=== PATIENT | female | born 1990 | race African-American/Black ===

== ENCOUNTER 2016-05-30 10:20 | Inpatient (IN) | payer MEDICAID ==
[2016-05-30 11:02] LABS: APPEARANCE,URINE CLOUDY; BILIRUBIN,URINE NEGATIVE (NEGATIVE); GLUCOSE, URINE NEGATIVE (NEGATIVE); KETONES,URINE TRACE mg/dL (NEGATIVE); LEUKOCYTE ESTERASE,URINE LARGE (NEGATIVE); NITRITE,URINE NEGATIVE (NEGATIVE); PROTEIN,URINE NEGATIVE (NEGATIVE); URINE SPECIFIC GRAVITY 1.012; UROBILINOGEN,URINE NEGATIVE mg/dL (<2.0)
[2016-05-30 11:22] LABS: URINE BARBITURATES SCREEN NEGATIVE; URINE METHADONE SCREEN NEGATIVE; URINE OPIATES LOW NEGATIVE; URINE PHENCYCLIDINE SCREEN NEGATIVE
--- NOTE | 2016-05-30 12:01 | L&D Flow Sheet ---
LD Flowsheet Datetime Report Generated by CPN: 05/30/2016 12:00 Datetime: 05/30/2016 11:57 Patient Care Patient Position/Activity: Left Lateral; Low Fowlers (Priyanka Marlatt, RN) Datetime: 05/30/2016 11:56 Vaginal Exam Dilatation (cm): 6.0 (Priyanka Roblero, RN) Effacement (%): 90 (Priyanka Roblero, RN) Station: 0 (Priyanka Roblero, RN) Exam by: Dede Roblero RN (Priyanka Roblero, RN) Cervix, Position: Midposition (Priyanka Roblero, RN) Datetime: 05/30/2016 11:43 NBP Sys/Emma/Mean (mmHg): 126 (QS system process) : 58 (QS system process) : 83 (QS system process) Pulse: 67 (QS system process) Communication LaborFlag: Antepartum (QS system process) Datetime: 05/30/2016 11:12 NBP Sys/Emma/Mean (mmHg): 125 (QS system process) : 75 (QS system process) : 91 (QS system process) Pulse: 74 (QS system process) Communication LaborFlag: Antepartum (QS system process) Datetime: 05/30/2016 11:00 Uterine Activity Monitor Mode: External; Palpation (Priyanka Marlatt, RN) Frequency (min): 2-3.5 (Priyanka Marlatt, RN) Quality: Mild/Moderate (Priyanka Marlatt, RN) Duration (sec): 50-90 (Priyanka Marlatt, RN) Resting Tone (Palpate): Relaxed (Priyanka Marlatt, RN) Assessment A Monitor Mode: External US (Priyanka Marlatt, RN) FHR Baseline Rate : 145 (Priyanka Marlatt, RN) Variability: Moderate 6-25 bpm (Priyanka Marlatt, RN) Decelerations: None (Priyanka Marlatt, RN) Datetime: 05/30/2016 10:57 I/O Interventions: Popsicle (Priyanka Marlatt, RN) Datetime: 05/30/2016 10:56 Temperature (F): 98.3 (Priyanka Marlatt, RN) Temperature (C): 36.8 (QS system process) Communication LaborFlag: Antepartum (QS system process) Datetime: 05/30/2016 10:55 Monitor Interventions for UA: [place] Adjusted (Priyanka Marlatt, RN) Datetime: 05/30/2016 10:42 NBP Sys/Emma/Mean (mmHg): 135 (QS system process) : 63 (QS system process) : 89 (QS system process) Pulse: 67 (QS system process) Communication LaborFlag: Antepartum (QS system process) Datetime: 05/30/2016 10:35 Frequency (min): every 5 minutes (Priyanka Jacindasarahmanuelito, ) Pain Pain Scale: 3 (Priyanka Roblero RN) Pain Presence: Intermittent (Priyanka Roblero RN) Pain Type: Cramping; Contraction (Priyanka Roblero RN) Pain Location: Abdomen (Priyanka Roblero RN) Pain Goal: 1 (Priyanka Roblero RN) Pain Relief Measures: Comfort Measures (Priyanka Roblero RN) Pain Coping: Talking Through Contractions; Breathing Through Contractions (Priyanka Roblero RN) Membrane Status: Intact (Priyanka Roblero RN) Vaginal Bleeding: None (Priyanka Roblero RN) Maternal Assessment Level of Consciousness: Fully Conscious (Priyanka Roblero, RN) DTR's/Clonus: DTRs 2+; No Clonus (Priyanka Roblero, RN) Headache: Denies (Priyanka Mayatt, RN) Breath Sounds, Left: Clear and Equal (Priyanka Roblero, RN) Breath Sounds, Right: Clear and Equal (Priyanka Roblero, RN) Nausea/Vomiting: Denies (Priyanka Roblero, RN) RUQ Epigastric Pain: Denies (Priyanka Monacolatt, RN) Teaching Instructional Method: Demo; Verbal; Patient Instructed; Family/Support Person Instructed; Verbalized Understanding (Priyanka Roblero RN) Plan of Care: Plan of Care Discussed; Labor (Priyanka Roblero RN) Unit Routine: [place] to Room; [place]; Bed; Monitoring (Priyanka Roblero RN) Labor/Induction: Labor Stages (Priyanka Roblero, LIBBY) Communication LaborFlag: Antepartum (QS system process) Datetime: 05/30/2016 10:34 Vaginal Exam Dilatation (cm): 4.0 (Priyanka Roblero RN) Effacement (%): 90 (Priyanka Roblero RN) Station: 0 (Priyanka Roblero RN) Exam by: Dede Roblero RN (Priyanka Roblero RN) Vaginal Bleeding: None (Priyanka Roblero RN) Cervix, Consistency: Soft (Priyanka Roblero RN) Cervix, Position: Midposition (Priyanka Roblero RN) Datetime: 05/30/2016 10:33 Vital Signs Stage of : Antepartum (Priyanka Roblero RN)
[2016-05-30] MEDS ORDERED: PENICILLIN G-K 5 MILLION UNIT VIAL ONE ×2 (12:04→15:46)
[2016-05-30] MEDS ORDERED: RINGERS SOLUTION,LACTATED 1,000 ML IV ONE (12:10)
[2016-05-30] MEDS ORDERED: PENICILLIN G POTASSIUM 5,000,000 UNIT in DEXTROSE 5%-WATER 100 ML IV ONE (12:10)
[2016-05-30] MEDS ORDERED: RINGERS SOLUTION,LACTATED 1,000 ML IV PRN (12:10)
[2016-05-30 12:52] LABS: ABSOLUTE EOSINOPHILS # (AUTO) 0.1 10^3/uL (0.0-0.6); ABSOLUTE LYMPHOCYTES (AUTO) 1.4 10^3/uL (0.5-4.7); ABSOLUTE MONOCYTES (AUTO) 0.4 10^3/uL (0.1-1.4); ABSOLUTE NEUT (AUTO) 9.9 10^3/uL (1.7-8.2); BASOPHILS % (AUTO) 0.4 % (0-2); EOSINOPHILS % (AUTO) 0.6 % (0-6); HEMATOCRIT 35.8 % (36.0-47.0); HEMOGLOBIN 11.7 g/dL (12.0-15.5); HGB HCT DIFFERENCE -0.7; LYMPHOCYTES % (AUTO) 11.9 % (13-45); MEAN CORPUSCULAR HEMOGLOBIN 28.3 pg (27.0-33.4); MEAN CORPUSCULAR HGB CONC 32.6 g/dL (32.0-36.0); MEAN CORPUSCULAR VOLUME 87 fl (80-97); MONOCYTES % (AUTO) 3.7 % (3-13); RED BLOOD COUNT 4.12 10^6/uL (3.72-5.28); RED CELL DISTRIBUTION WIDTH 13.5 % (11.5-14.0); SEGMENTED NEUTROPHILS % (AUTO) 83.4 % (42-78); WHITE BLOOD COUNT 11.8 10^3/uL (4.0-10.5)
[2016-05-30] MEDS ORDERED: EPHEDRINE SULFATE INJ 50 MG/1 ML AMPULE ONE (13:17)
[2016-05-30] MEDS ORDERED: FENTANYL/BUPIVACAINE/NS/PF 200 MCG/100 ML RTUINJ EPI ONE (13:18)
[2016-05-30] MEDS ORDERED: BUPIVACAINE HCL 0.25 % INJ/PF (2.5 MG/1 ML) 30 ML VIAL ONE (13:18)
--- NOTE | 2016-05-30 14:01 | L&D Flow Sheet ---
LD Flowsheet Datetime Report Generated by CPN: 05/30/2016 14:00 Datetime: 05/30/2016 13:58 Pulse: 74 (QS system process) SpO2 (%): 99 (QS system process) LaborFlag: Antepartum (QS system process) Datetime: 05/30/2016 13:53 Pulse: 72 (QS system process) SpO2 (%): 99 (QS system process) Procedure Verify: Correct Patient Identity; Accurate Procedure Consent Form; Agreement on Procedure to be Done; Correct Patient Position (Priyanka Roblero RN) Anesthesia Plans: Epidural (Priyanka Roblero RN) Epidural Positioning: Sitting (Priyanka Roblero RN) Anesthesia Comments: Dr. Greene at bedside (Priyanka Roblero RN) LaborFlag: Antepartum (QS system process) Datetime: 05/30/2016 13:50 Epidural Positioning: Sitting (Priyanka Roblero RN) Datetime: 05/30/2016 13:44 NBP Sys/Emma/Mean (mmHg): 123 (QS system process) : 68 (QS system process) : 88 (QS system process) Pulse: 78 (QS system process) LaborFlag: Antepartum (QS system process) Datetime: 05/30/2016 13:35 Monitor Interventions for UA: [place] Adjusted (Priyanka Marlatt, RN) Datetime: 05/30/2016 13:34 Monitor Interventions for FHR: Ultrasound Adjusted (Priyanka Marlatt, RN) Datetime: 05/30/2016 13:33 Patient Position/Activity: Right Lateral; Semi-Fowlers (Priyanka Marlatt, RN) Datetime: 05/30/2016 13:31 Pain Coping: Requesting Pain Medication or Epidural (Priyanka Roblero RN) Pain Assessment Comments: Dr. Greene notified of patient requesting epidural. States he will be here in 10-15 minutes (Priyanka Roblero RN) Comfort Measures: Anesthesia Notified (Priyanka Roblero RN) LaborFlag: Antepartum (QS system process) Datetime: 05/30/2016 13:30 Monitor Mode: External; Palpation (Priyanka Roblero RN) Frequency (min): 1.5-4.5 (Priyanka Roblero RN) Quality: Moderate (Priyanka Roblero RN) Duration (sec): 80-120 (Priyanka Roblero RN) Resting Tone (Palpate): Relaxed (Priyanka Roblero RN) Monitor Mode: External US (Priyanka Roblero RN) FHR Baseline Rate : 140 (Priyanka Roblero RN) Variability: Moderate 6-25 bpm (Priyanka Roblero RN) Accelerations: 10X10 (Priyanka Roblero RN) Decelerations: None (Priyanka Roblero RN) Datetime: 05/30/2016 13:28 I/O Interventions: Up to BR (Priyanka Marlatt, RN) Datetime: 05/30/2016 13:13 NBP Sys/Emma/Mean (mmHg): 123 (QS system process) : 54 (QS system process) : 78 (QS system process) Pulse: 74 (QS system process) LaborFlag: Antepartum (QS system process) Datetime: 05/30/2016 13:01 IV/Blood Work: New IV Bag Hung (Priyanka Marlatt, RN) Datetime: 05/30/2016 13:00 Monitor Mode: External; Palpation (Priyanka Roblero, RN) Monitor Interventions for UA: [place] Adjusted (Priyanka Roblero, RN) Frequency (min): 1.5-6 (Priyanka Roblero, RN) Quality: Moderate (Priyanka Roblero, RN) Duration (sec): 50-60 (Priyanka Roblero, RN) Resting Tone (Palpate): Relaxed (Priyanka Roblero, RN) Monitor Mode: External US (Priyanka Roblero, RN) Monitor Interventions for FHR: Ultrasound Adjusted (Priyanka Roblero, RN) FHR Baseline Rate : 140 (Priyanka Roblero, RN) Variability: Moderate 6-25 bpm (Priyanka Monacolatt, RN) Accelerations: 10X10 (Priyanka Roblero, RN) Decelerations: None (Priyanka Monacolatt, RN) Datetime: 05/30/2016 12:59 Patient Position/Activity: Right Lateral; Semi-Fowlers (Priyanka Marlatt, RN) Datetime: 05/30/2016 12:52 I/O Interventions: Up to BR (Priyanka Roblero RN) Datetime: 05/30/2016 12:43 NBP Sys/Emma/Mean (mmHg): 121 (QS system process) : 76 (QS system process) : 92 (QS system process) Pulse: 75 (QS system process) LaborFlag: Antepartum (QS system process) Datetime: 05/30/2016 12:30 Monitor Mode: External; Palpation (Priyanka Roblero RN) Frequency (min): 2-5 (Priyanka Roblero RN) Quality: Moderate (Priyanka Roblero RN) Duration (sec): 60-100 (Priyanka Roblero RN) Resting Tone (Palpate): Relaxed (Priyanka Roblero RN) Monitor Mode: External US (Priyanka Roblero RN) FHR Baseline Rate : 140 (Priyanka Roblero RN) Variability: Moderate 6-25 bpm (Priyanka Roblero RN) Decelerations: Late (Priyanka Roblero RN) Actions for Decelerations: IV Bolus (Priyanka Roblero RN) Patient Position/Activity: Right Lateral; Low Fowlers (Priyanka Roblero RN) Datetime: 05/30/2016 12:28 Communication: RN at Bedside; Provider at Bedside (Priyanka Roblero RN) Communication Comments: Dede Daniel CNM at bedside assessing patient and discussing plan of care (Priyanka Roblero RN) Datetime: 05/30/2016 12:26 IV/Blood Work: Labs Drawn (Priyanka Roblero RN) Datetime: 05/30/2016 12:05 Antibiotics: Penicillin IV (Units) @ [id number] (Priyanka Roblero RN) IV/Blood Work: IV Started; IV Bolus Started (Priyanka Roblero RN) Patient Care Comments: 18G lower Left forearm (Priyanka Roblero RN) Datetime: 05/30/2016 12:00 Monitor Mode: External (Priyanka Roblero RN) Frequency (min): 1.5-2.5 (Priyanka Roblero RN) Quality: Moderate (Priyanka Roblero RN) Duration (sec): 60-80 (Priyanka Roblero RN) Resting Tone (Palpate): Relaxed (Priyanka Roblero RN) Monitor Mode: External US (Priyanka Roblero RN) FHR Baseline Rate : 140 (Priyanka Roblero RN) Variability: Moderate 6-25 bpm (Priyanka Roblero RN) Accelerations: 10X10 (Priyanka Roblero RN) Decelerations: None (Priyanka Roblero RN)
[2016-05-30] MEDS ORDERED: LIDOCAINE 1% INJ-PF (10 MG/ML) 30 ML SDV ONE (15:13)
[2016-05-30] MEDS ORDERED: OXYTOCIN/NORMAL SALINE 20 UNIT/1,000 ML RTUINJ ONE (15:13)
[2016-05-30] MEDS ORDERED: MISOPROSTOL 0.2 MG TABLET ONE (15:13)
[2016-05-30] MEDS ORDERED: PENICILLIN G-K 5 MILLION UNIT VIAL IV SCH (16:00)
--- NOTE | 2016-05-30 16:01 | L&D Flow Sheet ---
LD Flowsheet Datetime Report Generated by CPN: 05/30/2016 16:00 Datetime: 05/30/2016 15:56 Preparation for Delivery: Setup for Delivery (Lorin Camp, RNC) Datetime: 05/30/2016 15:54 Antibiotics: Penicillin IV (Units) @ 2.5 million units ivpb (Lorin Camp, RNC) Datetime: 05/30/2016 15:52 Comments: rn at bedside adjusting monitors (Lorin Camp, RNC) Datetime: 05/30/2016 15:42 NBP Sys/Emma/Mean (mmHg): 115 (QS system process) : 60 (QS system process) : 80 (QS system process) Pulse: 82 (QS system process) LaborFlag: Antepartum (QS system process) Datetime: 05/30/2016 15:27 NBP Sys/Emma/Mean (mmHg): 131 (QS system process) : 58 (QS system process) : 84 (QS system process) Pulse: 74 (QS system process) LaborFlag: Antepartum (QS system process) Datetime: 05/30/2016 15:12 NBP Sys/Emma/Mean (mmHg): 115 (QS system process) : 61 (QS system process) : 75 (QS system process) Pulse: 90 (QS system process) LaborFlag: Antepartum (QS system process) Datetime: 05/30/2016 15:09 Pain Assessment Comments: patient feeling intermittent pressure (Priyanka Marlatt, RN) LaborFlag: Antepartum (QS system process) Datetime: 05/30/2016 15:04 Dilatation (cm): 8.0 (Priyanka Roblero RN) Effacement (%): 90 (Priyanka Roblero RN) Station: 1 (Priyanka Roblero RN) Exam by: Dede Roblero RN (Priyanka Roblero RN) Datetime: 05/30/2016 15:01 Patient Position/Activity: Hands-Knees (Priyanka Roblero RN) Datetime: 05/30/2016 14:58 NBP Sys/Emma/Mean (mmHg): 120 (QS system process) : 53 (QS system process) : 76 (QS system process) Pulse: 58 (QS system process) Patient Position/Activity: Right Lateral (Priyanka Roblero RN) LaborFlag: Antepartum (QS system process) Datetime: 05/30/2016 14:50 Patient Position/Activity: Left Lateral; [place] (Priyanka Marlatt, RN) Datetime: 05/30/2016 14:48 Monitor Interventions for UA: [place] Adjusted (Priyanka Marlatt, RN) Datetime: 05/30/2016 14:47 Actions for Decelerations: Side to Side (Priyanka Jacindalatt, RN) Patient Position/Activity: Left Lateral (Priyanka Marlatt, RN) Datetime: 05/30/2016 14:43 NBP Sys/Emma/Mean (mmHg): 122 (QS system process) : 58 (QS system process) : 83 (QS system process) Pulse: 62 (QS system process) LaborFlag: Antepartum (QS system process) Datetime: 05/30/2016 14:27 NBP Sys/Emma/Mean (mmHg): 122 (QS system process) : 79 (QS system process) : 94 (QS system process) Pulse: 85 (QS system process) LaborFlag: Antepartum (QS system process) Datetime: 05/30/2016 14:19 Patient Position/Activity: Right Lateral; [place] (Priyanka Marlatt, RN) Datetime: 05/30/2016 14:16 Dilatation (cm): 6.0 (Priyanka Roblero RN) Exam by: Dede Daniel (Priyanka Roblero RN) Membrane Status: Ruptured (Priyanka Roblero RN) Membranes Rupture Method: Artificial (Priyanka Roblero RN) Amniotic Fluid Color: Clear (Priyanka Roblero RN) Amniotic Fluid Amount: Small (Priyanka Roblero RN) Datetime: 05/30/2016 14:12 NBP Sys/Emma/Mean (mmHg): 134 (QS system process) : 62 (QS system process) : 88 (QS system process) Pulse: 71 (QS system process) LaborFlag: Antepartum (QS system process) Datetime: 05/30/2016 14:10 NBP Sys/Emma/Mean (mmHg): 130 (QS system process) : 60 (QS system process) : 86 (QS system process) Pulse: 72 (QS system process) I/O Interventions: Bond Cath Inserted (Priyanka Roblero RN) LaborFlag: Antepartum (QS system process) Datetime: 05/30/2016 14:08 NBP Sys/Emma/Mean (mmHg): 128 (QS system process) : 63 (QS system process) : 89 (QS system process) Pulse: 33 (QS system process) LaborFlag: Antepartum (QS system process) Datetime: 05/30/2016 14:06 NBP Sys/Emma/Mean (mmHg): 131 (QS system process) : 67 (QS system process) : 92 (QS system process) Pulse: 66 (QS system process) Epidural Procedure Other: Pump Started (Priyanka Marlatt, RN) LaborFlag: Antepartum (QS system process) Datetime: 05/30/2016 14:05 Anesthesia Level Check: T10- Umbilicus (Priyanka Jacindalatt, RN) Datetime: 05/30/2016 14:04 NBP Sys/Emma/Mean (mmHg): 131 (QS system process) : 64 (QS system process) : 91 (QS system process) Pulse: 81 (QS system process) LaborFlag: Antepartum (QS system process) Datetime: 05/30/2016 14:03 Pulse: 78 (QS system process) SpO2 (%): 99 (QS system process) LaborFlag: Antepartum (QS system process) Datetime: 05/30/2016 14:02 NBP Sys/Emma/Mean (mmHg): 132 (QS system process) : 78 (QS system process) : 96 (QS system process) Pulse: 81 (QS system process) LaborFlag: Antepartum (QS system process) Datetime: 05/30/2016 14:01 Epidural Procedure: Cath Placed (Priyanka Roblero RN) Epidural Procedure: Test Dose (Priyanka Roblero RN)
[2016-05-30] MEDS ORDERED: PENICILLIN G POTASSIUM 2,500,000 UNIT in DEXTROSE 5%-WATER 50 ML IV SCH (16:11)
[2016-05-30] MEDS ORDERED: DIPH/PERTUSS(ACELL)/TETANUS VAC/PF 0.5 ML SYR (>=10YO) IM PRN (17:01)
[2016-05-30] MEDS ORDERED: BENZOCAINE/MENTHOL AEROSOL SPRAY 56 ML TOP PRN (17:01)
[2016-05-30] MEDS ORDERED: ACETAMINOPHEN WITH CODEINE #3 TABLET PO PRN ×2 (17:01)
[2016-05-30] MEDS ORDERED: OXYTOCIN/NORMAL SALINE 1,000 ML IV PRN (17:01)
[2016-05-30] MEDS ORDERED: DIBUCAINE 1% OINTMENT 28 GM TP PRN (17:01)
[2016-05-30] MEDS ORDERED: MEASLES,MUMPS&RUBELLA VACC/PF 0.5 ML VIAL SUBCUT PRN (17:01)
[2016-05-30] MEDS ORDERED: ZOLPIDEM TARTRATE 5 MG TABLET PO PRN (17:01)
--- NOTE | 2016-05-30 18:01 | L&D Flow Sheet ---
LD Flowsheet Datetime Report Generated by CPN: 05/30/2016 18:00 Datetime: 05/30/2016 17:49 NBP Sys/Emma/Mean (mmHg): 129 (QS system process) : 60 (QS system process) : 84 (QS system process) Pulse: 66 (QS system process) LaborFlag: Antepartum (QS system process) Datetime: 05/30/2016 17:35 Pain Scale: 1 (Priyanka Roblero, RN) Pain Presence: Intermittent (GODWIN [place] Pain Type: Cramping (Priyanka Roblero RN) Pain Location: Abdomen (Priyanka Roblero RN) Pain Goal: 1 (Priyanka Roblero RN) Pain Relief Measures: Comfort Measures (Priyanka Roblero RN) LaborFlag: Antepartum (QS system process) Datetime: 05/30/2016 17:15 Pain Scale: 1 (Priyanka Roblero RN) Pain Presence: Intermittent (Priyanka Roblero RN) Pain Type: Cramping (Priyanka Roblero RN) Pain Location: Abdomen (Priyanka Roblero RN) Pain Goal: 1 (Priyanka Roblero RN) Pain Relief Measures: Comfort Measures (Priyanka Roblero RN) LaborFlag: Antepartum (QS system process) Datetime: 05/30/2016 17:12 NBP Sys/Emma/Mean (mmHg): 148 (QS system process) : 77 (QS system process) : 97 (QS system process) Pulse: 90 (QS system process) LaborFlag: Antepartum (QS system process) Datetime: 05/30/2016 17:00 Pain Scale: 1 (Priyanka Roblero RN) Pain Presence: Intermittent (Priyanka Roblero RN) Pain Type: Cramping (Priyanka Roblero RN) Pain Location: Abdomen (Priyanka Roblero RN) Pain Goal: 1 (Priyanka Roblero RN) Pain Relief Measures: Comfort Measures (Priyanka Roblero RN) LaborFlag: Antepartum (QS system process) Datetime: 05/30/2016 16:57 NBP Sys/Emma/Mean (mmHg): 141 (QS system process) : 61 (QS system process) : 88 (QS system process) Pulse: 77 (QS system process) LaborFlag: Antepartum (QS system process) Datetime: 05/30/2016 16:45 Pain Scale: 1 (Priyanka Roblero RN) Pain Presence: Intermittent (Pryianka Roblero RN) Pain Type: Cramping (Priyanka Roblero RN) Pain Location: Abdomen (Priyanka Roblero RN) Pain Goal: 1 (Priyanka Roblero RN) Pain Relief Measures: Comfort Measures (Priyanka Roblero RN) LaborFlag: Antepartum (QS system process) Datetime: 05/30/2016 16:42 NBP Sys/Emma/Mean (mmHg): 147 (QS system process) : 58 (QS system process) : 83 (QS system process) Pulse: 99 (QS system process) LaborFlag: Antepartum (QS system process) Datetime: 05/30/2016 16:31 Vacuum: Off (Priyanka Marlatt, RN) Vacuum: On (Priyanka Marlatt, RN) Datetime: 05/30/2016 16:30 Monitor Mode: External; Palpation (Priyanka Jacindalatt, RN) Frequency (min): 1.5-2 (Priyanka Marlatt, RN) Quality: Moderate (Priyanka Marlatt, RN) Duration (sec): 70-100 (Priyanka Marlatt, RN) Resting Tone (Palpate): Relaxed (Priyanka Marlatt, RN) Monitor Mode: External US (Priyanka Marlatt, RN) FHR Baseline Rate : 130 (Priyanka Marlatt, RN) Variability: Moderate 6-25 bpm (Priyanka Marlatt, RN) Decelerations: Late; Variable (Priyanka Marlatt, RN) Datetime: 05/30/2016 16:23 Actions for Decelerations: Oxygen Applied (Priyanka Monacolatt, RN) Patient Position/Activity: Right Tilt (Priyanka Marlatt, RN) Patient Position/Activity: Left Tilt (Priyanka Roblero, RN) Datetime: 05/30/2016 16:18 Patient Care Comments: o2 removed (Priyanka Roblero, RN) Datetime: 05/30/2016 16:15 Monitor Mode: External; Palpation (Priyanka Roblero, LIBBY) Frequency (min): 2-2.5 (Priyanka Roblero RN) Quality: Moderate (Priyanka Roblero RN) Duration (sec): 60-120 (Priyanka Roblero, RN) Resting Tone (Palpate): Relaxed (Priyanka Roblero, RN) Monitor Mode: External US (Priyanka Roblero, RN) FHR Baseline Rate : 140 (Priyanka Roblero RN) Variability: Moderate 6-25 bpm (Priyanka Roblero, RN) Decelerations: Variable (Priyanka Monacolatt, RN) Datetime: 05/30/2016 16:12 NBP Sys/Emma/Mean (mmHg): 132 (QS system process) : 63 (QS system process) : 90 (QS system process) Pulse: 85 (QS system process) LaborFlag: Antepartum (QS system process) Datetime: 05/30/2016 16:01 Comments: RN at bedside continously monitoring FHTs while pt pushing with contractions (Priyanka Roblero RN) Datetime: 05/30/2016 16:00 Monitor Mode: External; Palpation (Priyanka Roblero RN) Frequency (min): 2 (Priyanka Roblero RN) Quality: Moderate (Priyanka Roblero RN) Duration (sec): 50-100 (Priyanka Roblero RN) Resting Tone (Palpate): Relaxed (Priyanka Roblero RN) Monitor Mode: External US (Priyanka Roblero RN) FHR Baseline Changes: Unable to Determine (Priyanka Roblero RN) Variability: Moderate 6-25 bpm (Priyanka Roblero RN) Decelerations: Prolonged (Priyanka Roblero RN) Pushing: Coached on Pushing (Priyanka Roblero RN) Pushing Position: Pushing with Contractions; Pushing Lithotomy (Priyanka Roblero RN)
[2016-05-30] MEDS: FERROUS SULFATE 325 MG TABLET PO SCH (19:30)
[2016-05-30] MEDS: DOCUSATE SODIUM 100 MG CAPSULE PO SCH (19:30)
--- NOTE | 2016-05-30 19:48 | Admission Physical ---
Datetime Report Generated by CPN: 05/30/2016 19:48 CURRENT ADMISSION Chief Complaint: Uterine Contractions Indication for Induction: Not Applicable Admit Plan: Admit to Unit ALLERGIES Medication Allergies: No Medication Allergies: No Known Allergies (05/30/2016) Latex: No Latex Allergies OBSTETRICAL HISTORY EDC: 06/03/2016 00:00 : 2 Para: 1 Gestational Diabetes: No Rh Sensitization: No Incompetent Cervix: No JARRET: No Infertility: No ART Treatment: No Uterine Anomaly: No IUGR: No Hx Previous C/S: No Macrosomia: No Hx Loss/Stillborn: No PIH: No Hx : No Placenta Previa/Abruption: No Depression/PP Depression: No PTL/PROM: No Post Hemorrhage: No Current Procedures: Ultrasound; NST Obstetrical History Comments: G1 04/27/2010 6.9# F Epidural [facility] G2 Current SEE RECORDS Alcohol: No Marijuana : No Cocaine: No Other Illicit Drugs: No Cigarettes: Former Smoker. [id number] MEDICAL HISTORY Diabetes: No Blood Transfusion: No Pulmonary Disease (Asthma, TB): Yes Breast Disease: No Hypertension: No [employer] Surgery: No Heart Disease: No Hosp/Surgery: Yes Autoimmune Disorder: No Anesthetic Complications: No Kidney Disease: No Abnormal Pap Smear: No Neuro/Epilepsy: No Psychiatric Disorders: No Other Medical Diseases: No Hepatitis/Liver Disease: No Significant Family History: No Varicosities/Phlebitis: No Trauma/Violence : No Thyroid Dysfunction: No Medical History Comments: Asthma - no meds, childbirth INFECTIOUS HISTORY Gonorrhea: No Genital Herpes: Yes Chlamydia: Yes Tuberculosis: No Syphilis: No Hepatitis: No HIV/AIDS Exposure: No Rash or Viral Illness: No HPV: No Infectious History Comments: Hx Chlamydia, HSV PHYSICAL EXAM General: Normal HEENT: Normal Neurologic: Normal Thyroid: Deferred Heart: Normal Lungs: Normal Breast: Deferred Back: Normal Abdomen: Normal Genitourinary Exam: Deferred Extremities: Normal DTRs: Deferred Pelvic Type: Adequate Physical Exam Comments: cervix per RN Vital Signs: Reviewed FETUS A EGA: 39.3 Monitoring: External US FHR- Baseline: 140 Decelerations: None Presentation: Vertex Admit Comment: pt doing well, plans on epidural PLANS FOR LABOR AND DELIVERY Pain Management: Epidural Feeding Preference: Formula Benefit of Breast Feed Discussed: Yes Circumcision: N/A INFORMED CONSENT Assignment: Max Bolden DO Signature: with User ID: [email or web address] : with User ID: [email or web address]
--- NOTE | 2016-05-30 20:00 | L&D Flow Sheet ---
LD Flowsheet Datetime Report Generated by CPN: 05/30/2016 20:00 Datetime: 05/30/2016 19:43 Pain Scale: 0 (Priyanka Marlatt, RN) Pain Presence: None/Denies (Priyanka Marlatt, RN) Pain Type: N/A (Priyanka Marlatt, RN) LaborFlag: Antepartum (QS system process) Datetime: 05/30/2016 19:15 Pain Scale: 0 (Priyanka Marlatt, RN) Pain Presence: None/Denies (Priyanka Roblero RN) Pain Type: N/A (Priyanka Roblero RN) LaborFlag: Antepartum (QS system process) Datetime: 05/30/2016 18:49 NBP Sys/Emma/Mean (mmHg): 127 (QS system process) : 60 (QS system process) : 85 (QS system process) Pulse: 73 (QS system process) LaborFlag: Antepartum (QS system process) Datetime: 05/30/2016 18:25 Pain Scale: 1 (Priyanka Roblero RN) Pain Presence: Intermittent (Priyanka Roblero RN) Pain Type: Cramping (Priyanka Roblero RN) Pain Location: Abdomen (Priyanka Roblero RN) Pain Goal: 1 (Priyanka Roblero RN) Pain Relief Measures: Comfort Measures (Priyanka Roblero RN) LaborFlag: Antepartum (QS system process) Datetime: 05/30/2016 18:23 Patient Position/Activity: High Fowlers (Priyanka Roblero, RN) Patient Care Comments: dinner provided (Priyanka Roblero, RN) Datetime: 05/30/2016 18:19 NBP Sys/Emma/Mean (mmHg): 139 (QS system process) : 61 (QS system process) : 88 (QS system process) Pulse: 76 (QS system process) LaborFlag: Antepartum (QS system process) Datetime: 05/30/2016 18:05 Pain Scale: 1 (Priyanka Roblero, RN) Pain Presence: Intermittent (Priyanka Roblero RN) Pain Type: Cramping (Priyanka Roblero RN) Pain Location: Abdomen (Priyanka Roblero RN) Pain Goal: 1 (Priyanka Roblero RN) Pain Relief Measures: Comfort Measures (Priyanka Roblero RN) LaborFlag: Antepartum (QS system process)
[2016-05-30] MEDS: IBUPROFEN 800 MG TABLET PO SCH (21:19)
[2016-05-31] MEDS: IBUPROFEN 800 MG TABLET PO SCH ×3 (06:11→21:40)
--- NOTE | 2016-05-31 07:01 | L&D Flow Sheet ---
LD Flowsheet Datetime Report Generated by CPN: 05/31/2016 07:00 Datetime: 05/30/2016 19:43 Pain Scale: 0 (Priyanka Marlatt, RN) Pain Presence: None/Denies (Priyanka Marlatt, RN) Pain Type: N/A (Priyanka Marlatt, RN) LaborFlag: Antepartum (QS system process) Datetime: 05/30/2016 19:15 Pain Scale: 0 (Priyanka Marlatt, RN) Pain Presence: None/Denies (Priyanka Roblero RN) Pain Type: N/A (Priyanka Roblero RN) LaborFlag: Antepartum (QS system process)
[2016-05-31 08:06] LABS: HEMATOCRIT 32.5 % (36.0-47.0); HEMOGLOBIN 10.8 g/dL (12.0-15.5); HGB HCT DIFFERENCE -0.1; MEAN CORPUSCULAR HEMOGLOBIN 28.8 pg (27.0-33.4); MEAN CORPUSCULAR HGB CONC 33.3 g/dL (32.0-36.0); MEAN CORPUSCULAR VOLUME 86 fl (80-97); RED BLOOD COUNT 3.76 10^6/uL (3.72-5.28); RED CELL DISTRIBUTION WIDTH 13.5 % (11.5-14.0); WHITE BLOOD COUNT 13.1 10^3/uL (4.0-10.5)
[2016-05-31] MEDS: SENNOSIDES/DOCUSATE 8.6-50 MG 1 EACH TABLET PO SCH (09:56)
[2016-05-31] MEDS: FERROUS SULFATE 325 MG TABLET PO SCH ×2 (09:56→17:32)
[2016-05-31] MEDS: DOCUSATE SODIUM 100 MG CAPSULE PO SCH ×2 (09:56→17:32)
[2016-05-31] MEDS: PRENATAL VITAMIN W-O CA NO5/FE FUMARATE/FA CAPSULE PO SCH (09:57)
--- NOTE | 2016-05-31 10:50 | PDOC PROGRESS REPORT ---
Subjective-OB Subjective: Post Delivery Day: 1 26 year old. Denies any needs at this time, lochia is stable, pain is well controlled, voiding without difficulty. Physical Exam (OB) Vital Signs: Temp Pulse Resp BP Pulse Ox 98.1 F 65 15 118/70 100 05/31/16 08:31 05/31/16 08:31 05/31/16 08:31 05/31/16 08:31 05/31/16 08:31 Intake & Output 05/30/16 05/31/16 06/01/16 06:59 06:59 06:59 Weight 88.9 kg - Lochia Lochia Amount: Scant < 10 ml Lochia Color: Rubra/Red - Abdomen Description: Tender, Soft Hernia Present: No Fundal Description: Firm, Midline Fundal Height: u/u - u/2 Objective-Diagnostic Laboratory: 05/31/16 07:55 05/30/16 05/30/16 05/30/16 10:30 12:28 12:28 WBC 11.8 H RBC 4.12 Hgb 11.7 L Hct 35.8 L MCV 87 MCH 28.3 MCHC 32.6 RDW 13.5 Plt Count 219 Seg Neutrophils % 83.4 H Lymphocytes % 11.9 L Monocytes % 3.7 Eosinophils % 0.6 Basophils % 0.4 Absolute Neutrophils 9.9 H Absolute Lymphocytes 1.4 Absolute Monocytes 0.4 Absolute Eosinophils 0.1 Absolute Basophils 0.0 Urine Color YELLOW Urine Appearance CLOUDY Urine pH 7.0 Ur Specific [place] 1.012 Urine Protein NEGATIVE Urine Glucose (UA) NEGATIVE Urine Ketones TRACE H Urine Blood NEGATIVE Urine Nitrite NEGATIVE Ur Leukocyte Esterase LARGE H Blood Type O NEGATIVE Antibody Screen POSITIVE 05/31/16 05/31/16 07:55 07:55 WBC 13.1 H RBC 3.76 Hgb 10.8 L Hct 32.5 L MCV 86 MCH 28.8 MCHC 33.3 RDW 13.5 Plt Count 203 Seg Neutrophils % Lymphocytes % Monocytes % Eosinophils % Basophils % Absolute Neutrophils Absolute Lymphocytes Absolute Monocytes Absolute Eosinophils Absolute Basophils Urine Color Urine Appearance Urine pH Ur Specific [place] Urine Protein Urine Glucose (UA) Urine Ketones Urine Blood Urine Nitrite Ur Leukocyte Esterase Blood Type O NEGATIVE Antibody Screen Assessment and Plan(PN) - Assessment and Plan (1) Vacuum extractor delivery, delivered Is this a current diagnosis for this admission?: YesPlan: routine pp care anticipate d/c home tomorrow - Time Spent with Patient Time with patient: Less than 15 minutes Critical Time spent with patient: Less than 15 minutes Medications reviewed and adjusted accordingly: Yes - Disposition Anticipated Discharge: Home Within: within 24 hours
--- NOTE | 2016-05-31 18:01 | L&D General Admission ---
General Admit Datetime Report Generated by CPN: 05/31/2016 18:00 INFORMATION Patient Age: 26 (05/01/2016 15:54:QS system process) EDC: 06/03/2016 00:00 (05/30/2016 10:27:Remy Leon RN) LMP: 08/28/2015 00:00 (05/30/2016 10:27:Remy Leon RN) : 2 (05/30/2016 10:27:Remy Leon RN) Para: 1 (05/30/2016 10:27:Remy Leon RN) CARE Primary Diffusion Operator: [facility] (05/30/2016 10:27:Priyanka Roblero RN) Diffusion Operator Other: [facility] (05/30/2016 10:27:Priyanka Roblero RN) Prepregnancy Weight (lb): 167 (05/30/2016 10:27:Remy Leon RN) Prepregnancy Weight (kg): 75.9 (05/30/2016 10:27:QS system process) Height (in): 63 (05/31/2016 08:06:QS system process) ALLERGIES Medication Allergy: No (05/30/2016 10:27:Priyanka Roblero RN) Medication Allergies: No Known Allergies (05/30/2016) (05/30/2016 10:31:QS system process) Latex Allergy: No Latex Allergies (05/30/2016 10:27:Priyanka Roblero RN) COMMUNICATION Primary Language: Guyanese (05/30/2016 10:27:Priyanka Roblero RN) Medical Tx Preferred Language: Guyanese (05/30/2016 10:27:DAVID Miller) DEMOGRAPHICS Address: [address] [place] [id number] (05/01/2016 15:54:QS system process) Zipcode: [address] (05/01/2016 15:54:QS system process) Home (05/01/2016 15:54:QS system process) Work (05/30/2016 10:20:QS system process) N: [id number] (05/01/2016 15:54:QS system process) Next of Kin Name: SIVA IYER (05/01/2016 15:54:QS system process) Next of Kin (05/01/2016 15:54:QS system process) Next of Kin Relationship: MO (05/01/2016 15:54:QS system process) Date of : 1990 (05/01/2016 15:54:QS system process) Marital Status: Single (05/01/2016 15:54:QS system process) Sex: Female (05/01/2016 15:54:QS system process) Race: (05/01/2016 15:54:QS system process) Ethnicity: Non- or (05/01/2016 15:54:QS system process) Synagogue: None (05/01/2016 15:54:QS system process) DRUG AND ALCOHOL USE Alcohol: No (05/30/2016 10:27:Priyanka Jacindalatt, RN) Cigarettes: Former Smoker. [id number] (05/30/2016 10:27:Priyanka Marlatt, RN) Marijuana: No (05/30/2016 10:27:Priyanka Marlatt, RN) Cocaine: No (05/30/2016 10:27:Priyanka Marlatt, RN) Other Illicit Drugs: No (05/30/2016 10:27:Priyanka Marlatt, RN) VACCINE HISTORY Influenza Vaccine: No (05/30/2016 10:27:Priyanka Jacindalatt, RN) Tugboat Dispatcher: [facility] (05/30/2016 10:27:Priyanka Roblero RN) Feeding Preference: Formula (05/30/2016 10:27:Priyanka Roblero RN) Benefit of Breast Feed Discussed: Yes (05/30/2016 10:27:Priyanka Roblero RN) Circumcision: N/A (05/30/2016 10:27:Priyanka Roblero RN) Classes Attended: No (05/30/2016 10:27:Priyanka Roblero RN) Tubal Ligation: No (05/30/2016 10:27:Priyanka Roblero RN) Tubal Authorization Signed: N/A (05/30/2016 10:27:Priyanka Roblero RN) Consent: N/A (05/30/2016 10:27:Priyanka Roblero RN) Consent Signed: N/A (05/30/2016 10:27:Priyanka Roblero RN) Pain Management Plans: Epidural (05/30/2016 10:27:Priyanka Roblero RN) Support Person: Daniel (05/30/2016 10:27:Priyanka Roblero RN) Support Person Relationship: Significant Other (05/30/2016 10:27:Priyanka Roblero RN) LIVING SITUATION/DISCHARGE PLAN Living Arrangements: House (05/30/2016 10:27:Priyanka Roblero RN) Adequate Access to:: Electric; Heat; Refrigeration; Plumbing/Running water; Phone; Transportation (05/30/2016 10:27:Priyanka Roblero RN) WIC Program: Yes (05/30/2016 10:27:Priyanka Roblero RN) Discharge Emergency Room Registered Nurse Person: Daniel (05/30/2016 10:27:Priyanka Roblero RN) Person to Help after Discharge: Daniel (05/30/2016 10:27:Priyanka Roblero RN) Currently Using Commun Resources: Yes (05/30/2016 10:27:Priyanka Roblero RN) Specify Current Resource Used: [employer] (05/30/2016 10:27:Priyanka Roblero RN) Car Seat for Discharge: Yes (05/30/2016 10:27:Priyanka Roblero RN) Adoption Requested: No (05/30/2016 10:27:Priyanka Roblero RN) Pt Contact w/infant Post : N/A (05/30/2016 10:27:Priyanka Roblero RN) LABS Blood Type: O Negative (05/30/2016 10:27:Priyanka Roblero RN) Antibody Screen: neg (05/30/2016 10:27:Priyanka Roblero RN) Hemoglobin: 10.8 L (05/31/2016 07:55:QS system process) Hematocrit: 32.5 L (05/31/2016 07:55:QS system process) MCV: 86 (05/31/2016 07:55:QS system process) Group Beta Strep: Positive (05/30/2016 10:27:Remy Leon RN) Gonorrhea: Negative (05/30/2016 10:27:Priyanka Roblero RN) Chlamydia: Negative (05/30/2016 10:27:Priyanka Roblero RN) RPR/VDRL: Nonreactive (05/30/2016 10:27:Priyanka Roblero RN) HIV Exposure Test: Negative (05/30/2016 10:27:Priyanka Roblero RN) Hepatitis B: Negative (05/30/2016 10:27:Priyanka Roblero RN) Rubella: Immune (05/30/2016 10:27:Priyanka Roblero RN) Varicella: Non Susceptible (05/30/2016 10:27:Priyanka Roblero RN) OB/PREVIOUS HISTORY LMP: 08/28/2015 00:00 (05/30/2016 10:27:Remy Leon RN) Previous Procedures: Ultrasound; NST (05/30/2016 10:27:Priyanka Roblero RN) Current Procedures: Ultrasound; NST (05/30/2016 10:27:Priyanka Roblero RN) History of Previous : No (05/30/2016 10:27:Priyanka Roblero RN) History of Gestational Diabetes: No (05/30/2016 10:27:Priyanka Roblero RN) History of PIH: No (05/30/2016 10:27:Priyanka Roblero RN) History of Incompetent Cervix: No (05/30/2016 10:27:Priyanka Roblero RN) History of Placenta Previa/Abrup: No (05/30/2016 10:27:Priyanka Roblero RN) History of Macrosomia: No (05/30/2016 10:27:Priyanka Roblero RN) History of IUGR: No (05/30/2016 10:27:Priyanka Roblero RN) History of Hemorrhage: No (05/30/2016 10:27:Priyanka Roblero RN) History of Loss/Stillborn: No (05/30/2016 10:27:Priyanka Roblero RN) History of : No (05/30/2016 10:27:Priyanka Roblero RN) History of D (Rh) Sensitization: No (05/30/2016 10:27:Priyanka Roblero RN) History Recurrent Loss/Stillborn: No (05/30/2016 10:27:Priyanka Roblero RN) History Depression/PP Depression: No (05/30/2016 10:27:Priyanka Roblero RN) History of Uterine Anomaly/JARRET: No (05/30/2016 10:27:Priyanka Roblero RN) History of Infertility: No (05/30/2016 10:27:Priyanka Roblero RN) History of ART Treatment: No (05/30/2016 10:27:Priyanka Roblero RN) History of JARRET: No (05/30/2016 10:27:Priyanka Roblero RN) Comments Obstetrical History: G1 04/27/2010 6.9# F Epidural [facility] G2 Current (05/30/2016 10:27:Remy Leon RN) MEDICAL HISTORY Med Hx Diabetes: No (05/30/2016 10:27:Priyanka Roblero RN) Med Hx Hypertension: No (05/30/2016 10:27:Priyanka Roblero RN) Med Hx Heart Disease: No (05/30/2016 10:27:Priyanka Roblero RN) Med Hx Autoimmune Disorder: No (05/30/2016 10:27:Priyanka Roblero RN) Med Hx Kidney Disease/UTI: No (05/30/2016 10:27:Priyanka Roblero RN) Med Hx Neurologic/Epilepsy: No (05/30/2016 10:27:Priyanka Roblero RN) Med Hx Psychiatric Disorders: No (05/30/2016 10:27:Priyanka Roblero RN) Med Hx Hepatitis/Liver Disease: No (05/30/2016 10:27:Priyanka Roblero RN) Med Hx Varicosities/Phlebitis: No (05/30/2016 10:27:Priyanka Roblero RN) Med Hx Thyroid Dysfunction: No (05/30/2016 10:27:Priyanka Roblero RN) Med Hx Trauma/Violence: No (05/30/2016 10:27:Priyanka Roblero RN) Med Hx Blood Transfusion: No (05/30/2016 10:27:Priyanka Roblero RN) Med Hx Pulmonary (Asthma,TB): Yes (05/30/2016 10:27:Remy Leon RN) Med Hx Breast: No (05/30/2016 10:27:Priyanka Roblero RN) Med Hx MANAGER OF CASE Surgery: No (05/30/2016 10:27:Priyanka Roblero RN) Med Hx Hospitalization/Surgery: Yes (05/30/2016 10:27:Priyanka Roblero RN) Med Hx Anesthetic Complications: No (05/30/2016 10:27:Priyanka Roblero RN) Med Hx Abnormal Pap Smear: No (05/30/2016 10:27:Priyanka Roblero RN) Other Medical Diseases: No (05/30/2016 10:27:Priyanka Roblero RN) Med Hx Significant Family Hx: No (05/30/2016 10:27:Priyanka Roblero RN) Details of Med/Surg Hx: Asthma - no meds, childbirth (05/30/2016 10:27:Priyanka Roblero RN) INFECTIOUS HISTORY Inf Hx Gonorrhea: No (05/30/2016 10:27:Priyanka Roblero RN) Inf Hx Chlamydia: Yes (05/30/2016 10:27:Remy Leon RN) Inf Hx Syphilis: No (05/30/2016 10:27:Priyanka Roblero RN) Inf Hx HIV/AIDS: No (05/30/2016 10:27:Priyanka Roblero RN) Inf Hx Human Papilloma Virus: No (05/30/2016 10:27:Priyanka Roblero RN) Inf Hx Pt/Partner Genital Herpes: Yes (05/30/2016 10:27:Remy Leon RN) Inf Hx Tuberculosis/Exposure: No (05/30/2016 10:27:Priyanka Roblero RN) Inf Hx Hepatitis B,C: No (05/30/2016 10:27:Priyanka Roblero RN) Inf Hx Rash or Viral Illness: No (05/30/2016 10:27:Priyanka Roblero RN) Details of Infectious Hx: Hx Chlamydia, HSV (05/30/2016 10:27:Remy Leon RN) GENETIC HISTORY Gen Hx Age >=35 at DANO: No (05/30/2016 10:27:Priyanka Roblero RN) Gen Hx Thalassemia: No (05/30/2016 10:27:Priyanka Roblero RN) Gen Hx Congenital Heart Defect: No (05/30/2016 10:27:Priyanka Roblero RN) Gen Hx Neural Tube Defect: No (05/30/2016 10:27:Priyanka Roblero RN) Gen Hx Down's Syndrome: No (05/30/2016 10:27:Priyanka Roblero RN) Gen Hx Chaitanya-Sachs: No (05/30/2016 10:27:Priyanka Roblero RN) Gen Hx Mellissa: No (05/30/2016 10:27:Priyanka Roblero RN) Gen Hx Familial Dysautonomia: No (05/30/2016 10:27:Priyanka Roblero RN) Gen Hx Sickle Cell Disease/Trait: No (05/30/2016 10:27:Priyanka Roblero RN) Gen Hx Hemophilia/Blood Disorder: No (05/30/2016 10:27:Priyanka Roblero RN) Gen Hx Muscular Dystrophy: No (05/30/2016 10:27:Priyanka Roblero RN) Gen Hx Cystic Fibrosis: No (05/30/2016 10:27:Priyanka Roblero RN) Gen Hx Huntingtons Chorea: No (05/30/2016 10:27:Priyanka Roblero RN) Gen Hx Mental Retardation/Autism: No (05/30/2016 10:27:Pryianka Roblero RN) Gen Hx Tested for Fragile X: No (05/30/2016 10:27:Priyanka Roblero RN) Gen Hx Other Inher/Chromosomal: No (05/30/2016 10:27:Priyanka Roblero RN) Gen Hx Maternal Metabolic DO: No (05/30/2016 10:27:Priyanka Roblero RN) Gen Hx Pt Father or FOB Defect: No (05/30/2016 10:27:Priyanka Roblero RN) Gen Hx Other Genetic History: No (05/30/2016 10:27:Priyanka Roblero RN) Gen Hx Drugs/Meds since LMP: No (05/30/2016 10:27:Priyanka Roblero RN)
--- NOTE | 2016-05-31 18:01 | L&D Current Admission ---
Current Admit Datetime Report Generated by CPN: 05/31/2016 18:00 ADMISSION INFORMATION Current Admit Date/Time: 05/30/2016 12:00 (05/30/2016 12:34:Priyanka Roblero RN) Reason for Admission: Onset of Labor (05/30/2016 12:34:Priyanka Roblero RN) Chief Complaint: Contractions (05/30/2016 10:35:Priyanka Roblero RN) EGA per Dates: 39.3 (05/30/2016 12:34:QS system process) Method of Arrival: Wheelchair (05/30/2016 12:34:Priyanka Roblero RN) Admitted From: Home (05/30/2016 12:34:Priyanka Roblero RN) Reason for Induction: Not Applicable (05/30/2016 12:34:Priyanka Roblero RN) Records Available: Yes (05/30/2016 12:34:Priyanka Roblero RN) General Admission Information: Reviewed; Updated; Confirmed (05/30/2016 12:34:Priyanka Roblero RN) General Admission Reviewed By: Dede Roblero RN (05/30/2016 12:34:Priyanka Roblero RN) BELONGINGS/ADVANCED DIRECTIVES Valuables/Personal Effects: Purse/Wallet; Cell Phone (05/30/2016 12:34:Priyanka Roblero RN) Disposition of Belongings: Kept with Patient (05/30/2016 12:34:Priyanka Roblero RN) Advance Direct for Healthcare: No, and Wants No Information (05/30/2016 12:34:Priyanka Roblero RN) Durable Power of Chisel Grinder: No (05/30/2016 12:34:Priyanka Roblero RN) Living Will: No (05/30/2016 12:34:Priyanka Roblero RN) Organ Donor: No (05/30/2016 12:34:Priyanka Roblero RN) Pt Rights Information Given: Yes (05/30/2016 12:34:Priyanka Roblero RN) Pt Understands Pt Rights: Yes (05/30/2016 12:34:Priyanka Roblero RN) LEARNING ASSESSMENT Knowledge Level: Understands L_D Process (05/30/2016 12:34:Priyanka Roblero RN) Barriers to Learning: None (05/30/2016 12:34:Priyanka Roblero RN) Learning Readiness: Motivated (05/30/2016 12:Jennifer:Priyanka Roblero RN) Learns Best By: 1 to 1 Instruction (05/30/2016 12:Jennifer:Priyanka Roblero RN) Learning Needs: Labor and Delivery Process; Pain Management; Symptoms to Report; Treatment Plan (05/30/2016 12:34:Priyanka Roblero RN) DOMESTIC VIOLANCE SCREENING Dom Viol Threatened/Hurt: No (05/30/2016 12:34:Priyanka Roblero RN) Hx of Abuse/Neglect past 2yrs: No (05/30/2016 12:34:Priyanka Roblero RN) Feel Unsafe Going Home: No (05/30/2016 12:34:Priyanka Roblero RN) Addt'l Observ Indicating Abuse: No (05/30/2016 12:34:Priyanka Roblero RN) Reason Unable to Complete Screen: N/A, Screen Completed (05/30/2016 12:Jennifer:Priyanka Roblero RN) Considered Personal Harm/Suicide: No (05/30/2016 12:Jennifer:Priyanka Roblero RN) NUTRITIONAL/FUNCTIONAL SCREENING Problem with Appetite >5 Days: No (05/30/2016 12:34:Priyanka Roblero RN) Chew/Swallow Difficulties: No (05/30/2016 12:34:Priyanka Roblero RN) Inappropriate Wt Gain/Loss: No (05/30/2016 12:34:Priyanka Roblero RN) Presence Skin Breakdown/Ulcer: No (05/30/2016 12:34:Priyanka Roblero RN) Special Diet: No (05/30/2016 12:34:Priyanka Roblero RN) Pt Requests Inshore Undersea Warfare Officer Visit: No (05/30/2016 12:34:Priyanka Roblero RN) Hx of Any of the Following?: N/A (05/30/2016 12:34:Priyanka Roblero RN) New Diagnosis of: N/A (05/30/2016 12:34:Priyanka Roblero RN) Requires Assist w/Ambulation: No (05/30/2016 12:34:Priyanka Roblero RN) Uses Assist Device to Ambulate: No (05/30/2016 12:34:Priyanka Roblero RN) Pt Requires Help w/ADL's: No (05/30/2016 12:34:Priyanka Roblero RN)
[2016-06-01] MEDS: IBUPROFEN 800 MG TABLET PO SCH (06:00)
--- NOTE | 2016-06-01 06:01 | L&D General Admission ---
General Admit Datetime Report Generated by CPN: 06/01/2016 06:00 INFORMATION Patient Age: 26 (05/01/2016 15:54:QS system process) EDC: 06/03/2016 00:00 (05/30/2016 10:27:Remy Leon RN) LMP: 08/28/2015 00:00 (05/30/2016 10:27:Remy Leon RN) : 2 (05/30/2016 10:27:Remy Leon RN) Para: 1 (05/30/2016 10:27:Remy Leon RN) CARE Primary Neuropsychology Division Chief: [facility] (05/30/2016 10:27:Priyanka Roblero RN) Neuropsychology Division Chief Other: [facility] (05/30/2016 10:27:Priyanka Roblero RN) Prepregnancy Weight (lb): 167 (05/30/2016 10:27:Remy Leon RN) Prepregnancy Weight (kg): 75.9 (05/30/2016 10:27:QS system process) Height (in): 63 (05/31/2016 08:06:QS system process) ALLERGIES Medication Allergy: No (05/30/2016 10:27:Priyanka Roblero RN) Medication Allergies: No Known Allergies (05/30/2016) (05/30/2016 10:31:QS system process) Latex Allergy: No Latex Allergies (05/30/2016 10:27:Priyanka Roblero RN) COMMUNICATION Primary Language: Hong Konger (05/30/2016 10:27:Priyanka Roblero RN) Medical Tx Preferred Language: Hong Konger (05/30/2016 10:27:DAVID Miller) DEMOGRAPHICS Address: [address] [place] [id number] (05/01/2016 15:54:QS system process) Zipcode: [address] (05/01/2016 15:54:QS system process) Home (05/01/2016 15:54:QS system process) Work (05/30/2016 10:20:QS system process) N: [phone] (05/01/2016 15:54:QS system process) Next of Kin Name: SIVA IYER (05/01/2016 15:54:QS system process) Next of Kin (05/01/2016 15:54:QS system process) Next of Kin Relationship: MO (05/01/2016 15:54:QS system process) Date of : 1990 (05/01/2016 15:54:QS system process) Marital Status: Single (05/01/2016 15:54:QS system process) Sex: Female (05/01/2016 15:54:QS system process) Race: (05/01/2016 15:54:QS system process) Ethnicity: Non- or (05/01/2016 15:54:QS system process) Gnosticism: None (05/01/2016 15:54:QS system process) DRUG AND ALCOHOL USE Alcohol: No (05/30/2016 10:27:Priyanka Jacindalatt, RN) Cigarettes: Former Smoker. [id number] (05/30/2016 10:27:Priyanka Marlatt, RN) Marijuana: No (05/30/2016 10:27:Priyanka Marlatt, RN) Cocaine: No (05/30/2016 10:27:Priyanka Marlatt, RN) Other Illicit Drugs: No (05/30/2016 10:27:Priyanka Marlatt, RN) VACCINE HISTORY Influenza Vaccine: No (05/30/2016 10:27:Priyanka Jacindalatt, RN) Spout Liner: [facility] (05/30/2016 10:27:Priyanka Roblero RN) Feeding Preference: Formula (05/30/2016 10:27:Priyanka Roblero RN) Benefit of Breast Feed Discussed: Yes (05/30/2016 10:27:Priyanka Roblero RN) Circumcision: N/A (05/30/2016 10:27:Priyanka Robleor RN) Classes Attended: No (05/30/2016 10:27:Priyanka Roblero RN) Tubal Ligation: No (05/30/2016 10:27:Priyanka Roblero RN) Tubal Authorization Signed: N/A (05/30/2016 10:27:Priyanka Roblero RN) Consent: N/A (05/30/2016 10:27:Priyanka Roblero RN) Consent Signed: N/A (05/30/2016 10:27:Priyanka Roblero RN) Pain Management Plans: Epidural (05/30/2016 10:27:Priyanka Roblero RN) Support Person: Daniel (05/30/2016 10:27:Priyanka Roblero RN) Support Person Relationship: Significant Other (05/30/2016 10:27:Priyanka Roblero RN) LIVING SITUATION/DISCHARGE PLAN Living Arrangements: House (05/30/2016 10:27:Priyanka Roblero RN) Adequate Access to:: Electric; Heat; Refrigeration; Plumbing/Running water; Phone; Transportation (05/30/2016 10:27:Priyanka Roblero RN) WIC Program: Yes (05/30/2016 10:27:Priyanka Roblero RN) Discharge Notching Machine Operator Person: Daniel (05/30/2016 10:27:Priyanka Roblero RN) Person to Help after Discharge: Daniel (05/30/2016 10:27:Priyanka Roblero RN) Currently Using Commun Resources: Yes (05/30/2016 10:27:Priyanka Rolbero RN) Specify Current Resource Used: [employer] (05/30/2016 10:27:Priyanka Roblero RN) Car Seat for Discharge: Yes (05/30/2016 10:27:Priyanka Roblero RN) Adoption Requested: No (05/30/2016 10:27:Priyanka Roblero RN) Pt Contact w/infant Post : N/A (05/30/2016 10:27:Priyanka Roblero RN) LABS Blood Type: O Negative (05/30/2016 10:27:Priyanka Roblero RN) Antibody Screen: neg (05/30/2016 10:27:Priyanka Roblero RN) Hemoglobin: 10.8 L (05/31/2016 07:55:QS system process) Hematocrit: 32.5 L (05/31/2016 07:55:QS system process) MCV: 86 (05/31/2016 07:55:QS system process) Group Beta Strep: Positive (05/30/2016 10:27:Remy Leon RN) Gonorrhea: Negative (05/30/2016 10:27:Priyanka Roblero RN) Chlamydia: Negative (05/30/2016 10:27:Priyanka Roblero RN) RPR/VDRL: Nonreactive (05/30/2016 10:27:Priyanka Roblero RN) HIV Exposure Test: Negative (05/30/2016 10:27:Priyanka Roblero RN) Hepatitis B: Negative (05/30/2016 10:27:Priyanka Roblero RN) Rubella: Immune (05/30/2016 10:27:Priyanka Roblero RN) Varicella: Non Susceptible (05/30/2016 10:27:Priyanka Roblero RN) OB/PREVIOUS HISTORY LMP: 08/28/2015 00:00 (05/30/2016 10:27:Remy Leon RN) Previous Procedures: Ultrasound; NST (05/30/2016 10:27:Priyanka Rolbero RN) Current Procedures: Ultrasound; NST (05/30/2016 10:27:Priyanka Roblero RN) History of Previous : No (05/30/2016 10:27:Priyanka Roblero RN) History of Gestational Diabetes: No (05/30/2016 10:27:Priyanka Roblero RN) History of PIH: No (05/30/2016 10:27:Priyanka Roblero RN) History of Incompetent Cervix: No (05/30/2016 10:27:Priyanka Roblero RN) History of Placenta Previa/Abrup: No (05/30/2016 10:27:Priyanka Roblero RN) History of Macrosomia: No (05/30/2016 10:27:Priyanka Roblero RN) History of IUGR: No (05/30/2016 10:27:Priyanka Roblero RN) History of Hemorrhage: No (05/30/2016 10:27:Priyanka Roblero RN) History of Loss/Stillborn: No (05/30/2016 10:27:Priyanka Roblero RN) History of : No (05/30/2016 10:27:Priyanka Roblero RN) History of D (Rh) Sensitization: No (05/30/2016 10:27:Priyanka Roblero RN) History Recurrent Loss/Stillborn: No (05/30/2016 10:27:Priyanka Roblero RN) History Depression/PP Depression: No (05/30/2016 10:27:Priyanka Roblero RN) History of Uterine Anomaly/JARRET: No (05/30/2016 10:27:Priyanka Roblero RN) History of Infertility: No (05/30/2016 10:27:Priyanka Roblero RN) History of ART Treatment: No (05/30/2016 10:27:Priyanka Roblero RN) History of JARRET: No (05/30/2016 10:27:Priyanka Roblero RN) Comments Obstetrical History: G1 04/27/2010 6.9# F Epidural [facility] G2 Current (05/30/2016 10:27:Remy Leon RN) MEDICAL HISTORY Med Hx Diabetes: No (05/30/2016 10:27:Priyanka Roblero RN) Med Hx Hypertension: No (05/30/2016 10:27:Priyanka Roblero RN) Med Hx Heart Disease: No (05/30/2016 10:27:Priyanka Roblero RN) Med Hx Autoimmune Disorder: No (05/30/2016 10:27:Priyanka Roblero RN) Med Hx Kidney Disease/UTI: No (05/30/2016 10:27:Priyanka Roblero RN) Med Hx Neurologic/Epilepsy: No (05/30/2016 10:27:Priyanka Roblero RN) Med Hx Psychiatric Disorders: No (05/30/2016 10:27:Priyanka Roblero RN) Med Hx Hepatitis/Liver Disease: No (05/30/2016 10:27:Priyanka Roblero RN) Med Hx Varicosities/Phlebitis: No (05/30/2016 10:27:Priyanka Roblero RN) Med Hx Thyroid Dysfunction: No (05/30/2016 10:27:Priyanka Roblero RN) Med Hx Trauma/Violence: No (05/30/2016 10:27:Priyanka Roblero RN) Med Hx Blood Transfusion: No (05/30/2016 10:27:Priyanka Roblero RN) Med Hx Pulmonary (Asthma,TB): Yes (05/30/2016 10:27:Remy Leon RN) Med Hx Breast: No (05/30/2016 10:27:Priyanka Roblero RN) Med Hx ADJUNCT INSTRUCTOR CHEMISTRY Surgery: No (05/30/2016 10:27:Priyanka Roblero RN) Med Hx Hospitalization/Surgery: Yes (05/30/2016 10:27:Priyanka Roblero RN) Med Hx Anesthetic Complications: No (05/30/2016 10:27:Priyanka Roblero RN) Med Hx Abnormal Pap Smear: No (05/30/2016 10:27:Priyanka Roblero RN) Other Medical Diseases: No (05/30/2016 10:27:Priyanka Roblero RN) Med Hx Significant Family Hx: No (05/30/2016 10:27:Priyanka Roblero RN) Details of Med/Surg Hx: Asthma - no meds, childbirth (05/30/2016 10:27:Priyanka Roblero RN) INFECTIOUS HISTORY Inf Hx Gonorrhea: No (05/30/2016 10:27:Priyanka Roblero RN) Inf Hx Chlamydia: Yes (05/30/2016 10:27:Remy Leon RN) Inf Hx Syphilis: No (05/30/2016 10:27:Priyanka Roblero RN) Inf Hx HIV/AIDS: No (05/30/2016 10:27:Priyanka Roblero RN) Inf Hx Human Papilloma Virus: No (05/30/2016 10:27:Priyanka Roblero RN) Inf Hx Pt/Partner Genital Herpes: Yes (05/30/2016 10:27:Remy Leon RN) Inf Hx Tuberculosis/Exposure: No (05/30/2016 10:27:Priyanka Roblero RN) Inf Hx Hepatitis B,C: No (05/30/2016 10:27:Priyanka Roblero RN) Inf Hx Rash or Viral Illness: No (05/30/2016 10:27:Priyanka Roblero RN) Details of Infectious Hx: Hx Chlamydia, HSV (05/30/2016 10:27:Remy Leon RN) GENETIC HISTORY Gen Hx Age >=35 at DANO: No (05/30/2016 10:27:Priyanka Roblero RN) Gen Hx Thalassemia: No (05/30/2016 10:27:Priyanka Roblero RN) Gen Hx Congenital Heart Defect: No (05/30/2016 10:27:Priyanka Roblero RN) Gen Hx Neural Tube Defect: No (05/30/2016 10:27:Priyanka Roblero RN) Gen Hx Down's Syndrome: No (05/30/2016 10:27:Priyanka Roblero RN) Gen Hx Chaitanya-Sachs: No (05/30/2016 10:27:Priyanka Roblero RN) Gen Hx Mellissa: No (05/30/2016 10:27:Priyanka Roblero RN) Gen Hx Familial Dysautonomia: No (05/30/2016 10:27:Priyanka Roblero RN) Gen Hx Sickle Cell Disease/Trait: No (05/30/2016 10:27:Priyanka Roblero RN) Gen Hx Hemophilia/Blood Disorder: No (05/30/2016 10:27:Priyanka Roblero RN) Gen Hx Muscular Dystrophy: No (05/30/2016 10:27:Priyanka Roblero RN) Gen Hx Cystic Fibrosis: No (05/30/2016 10:27:Priyanka Roblero RN) Gen Hx Huntingtons Chorea: No (05/30/2016 10:27:Priyanka Roblero RN) Gen Hx Mental Retardation/Autism: No (05/30/2016 10:27:Priyanka Roblero RN) Gen Hx Tested for Fragile X: No (05/30/2016 10:27:Priyanka Roblero RN) Gen Hx Other Inher/Chromosomal: No (05/30/2016 10:27:Priyanka Roblero RN) Gen Hx Maternal Metabolic DO: No (05/30/2016 10:27:Priyanka Roblero RN) Gen Hx Pt Father or FOB Defect: No (05/30/2016 10:27:Priyanka Roblero RN) Gen Hx Other Genetic History: No (05/30/2016 10:27:Priyanka Roblero RN) Gen Hx Drugs/Meds since LMP: No (05/30/2016 10:27:Priyanka Roblero RN)
--- NOTE | 2016-06-01 06:01 | L&D Current Admission ---
Current Admit Datetime Report Generated by CPN: 06/01/2016 06:00 ADMISSION INFORMATION Current Admit Date/Time: 05/30/2016 12:00 (05/30/2016 12:34:Priyanka Roblero RN) Reason for Admission: Onset of Labor (05/30/2016 12:34:Priyanka Roblero RN) Chief Complaint: Contractions (05/30/2016 10:35:Priyanka Roblero RN) EGA per Dates: 39.3 (05/30/2016 12:34:QS system process) Method of Arrival: Wheelchair (05/30/2016 12:34:Priyanka Roblero RN) Admitted From: Home (05/30/2016 12:34:Priyanka Roblero RN) Reason for Induction: Not Applicable (05/30/2016 12:34:Priyanka Roblero RN) Records Available: Yes (05/30/2016 12:34:Priyanka Roblero RN) General Admission Information: Reviewed; Updated; Confirmed (05/30/2016 12:34:Priyanka Roblero RN) General Admission Reviewed By: Dede Roblero RN (05/30/2016 12:34:Priyanka Roblero RN) BELONGINGS/ADVANCED DIRECTIVES Valuables/Personal Effects: Purse/Wallet; Cell Phone (05/30/2016 12:34:Priyanka Roblero RN) Disposition of Belongings: Kept with Patient (05/30/2016 12:34:Priyanka Roblero RN) Advance Direct for Healthcare: No, and Wants No Information (05/30/2016 12:34:Priyanka Roblero RN) Durable Power of Arch Cushion Press Operator: No (05/30/2016 12:34:Priyanka Roblero RN) Living Will: No (05/30/2016 12:34:Priyanka Roblero RN) Organ Donor: No (05/30/2016 12:34:Priyanka Roblero RN) Pt Rights Information Given: Yes (05/30/2016 12:34:Priyanka Roblero RN) Pt Understands Pt Rights: Yes (05/30/2016 12:34:Priyanka Roblero RN) LEARNING ASSESSMENT Knowledge Level: Understands L_D Process (05/30/2016 12:34:Priyanka Roblero RN) Barriers to Learning: None (05/30/2016 12:34:Priyanka Roblero RN) Learning Readiness: Motivated (05/30/2016 12:Jennifer:Priyanka Roblero RN) Learns Best By: 1 to 1 Instruction (05/30/2016 12:Jennifer:Priyanka Roblero RN) Learning Needs: Labor and Delivery Process; Pain Management; Symptoms to Report; Treatment Plan (05/30/2016 12:34:Priyanka Roblero RN) DOMESTIC VIOLANCE SCREENING Dom Viol Threatened/Hurt: No (05/30/2016 12:34:Priyanka Roblero RN) Hx of Abuse/Neglect past 2yrs: No (05/30/2016 12:34:Priyanka Roblero RN) Feel Unsafe Going Home: No (05/30/2016 12:34:Priyanka Roblero RN) Addt'l Observ Indicating Abuse: No (05/30/2016 12:34:Priyanka Roblero RN) Reason Unable to Complete Screen: N/A, Screen Completed (05/30/2016 12:Jennifer:Priyanka Roblero RN) Considered Personal Harm/Suicide: No (05/30/2016 12:Jennifer:Priyanka Roblero RN) NUTRITIONAL/FUNCTIONAL SCREENING Problem with Appetite >5 Days: No (05/30/2016 12:34:Priyanka Roblero RN) Chew/Swallow Difficulties: No (05/30/2016 12:34:Priyanka Roblero RN) Inappropriate Wt Gain/Loss: No (05/30/2016 12:34:Priyanka Roblero RN) Presence Skin Breakdown/Ulcer: No (05/30/2016 12:34:Priyanka Roblero RN) Special Diet: No (05/30/2016 12:34:Priyanka Roblero RN) Pt Requests Construction Plumber Visit: No (05/30/2016 12:34:Priyanka Roblero RN) Hx of Any of the Following?: N/A (05/30/2016 12:34:Priyanka Roblero RN) New Diagnosis of: N/A (05/30/2016 12:34:Priyanka Roblero RN) Requires Assist w/Ambulation: No (05/30/2016 12:34:Priyanka Roblero RN) Uses Assist Device to Ambulate: No (05/30/2016 12:34:Priyanka Roblero RN) Pt Requires Help w/ADL's: No (05/30/2016 12:34:Priyanka Roblero RN)
--- NOTE | 2016-06-01 06:16 | L&D Care Plan ---
LD CARE PLANS Datetime Report Generated by CPN: 06/01/2016 06:15 Datetime: 05/30/2016 12:16 Pain State: Actual (Lorin Camp, RNC) Related To: Labor and Delivery Process; Treatment and Procedures; Post (Lorin Camp, RNC) Goal(s): Patients Pain will be Assessed and Managed; Patient will Verbalize Adequate Relief of Pain or the Ability to Mize with Current Pain (Lorin Camp, RNC) Interventions: Assess Pain Severity on Scale of 0 (None) to 5 (Severe); Assess Type, Location and Intensity of Pain Each Time Client Reports Discomfort and Notify Provider if Unusal Pain Develops; Encourage Proper Breathing and Relaxation Techniques; Offer Alternatives Such as Repositioning, Calm Environment, Massages, Diversional Activities, Ice Pack, Splinting, and Ambulation; Administer Analgesics as Ordered; Assist with Epidural Placement as Appropriate; Evaluate Therapeutic Effectiveness of Medication and Treatments (Lorin Benton, DAVID) Outcome: Patient will Report Absence or Relief of Pain Consistent with Established Pain Goal (DAVID Miller) Status: Ongoing (DAVID Miller) Outcome: Patient will have a Decrease in Signs and Symptoms of Discomfort (DAVID Miller) Status: Ongoing (DAVID Miller) Outcome: Pain will be Controlled During Procedures (DAVID Miller) Status: Ongoing (DAVID Miller) Anxiety State: Actual (DAVID Miller) Related To: Labor and Delivery Process; Perceived or Actual Threat to ; Fear of Unknown; Medical Interventions; Significant Life Event (DAVID Miller) Goal(s): Patient will have Decreased Anxiety and be able to Function at Acceptable Levels (DAVID Miller) Interventions: Assess Verbal and Nonverbal Behavioral Indicators of Anxiety; Assist Patient to Identify and Verbalize Symptoms of Anxiety; Identify and Demonstrate Techniques to Control Anxiety; Assist Patient with Coping Mechanisms to Manage Anxiety; Provide Theraputic Touch for the Patient; Explain to Patient, Using a Calm Reassuring Approach and Nonmedical Terms, All Activities, Procedures, and Concerns; Instruct Patient and Family about Post Discharge Care, Limitations, Symptoms to Report and Resources Available (DAVID Miller) Outcome: Patient will Identify, Verbalize and Demonstrate Techniques to Control Anxiety (DAVID Miller) Status: Ongoing (Lorin Benton, LIBBY) Outcome: Patient's Posture, Facial Expressions, Gestures and Activity Level will Reflect Decreased Anxiety (DAVID Miller) Status: Ongoing (Lorin Benton, RN) Outcome: Patient will Verbalize a Sense of Control and/or Acceptance of the Situation (Lorin Benton, RNGigi) Status: Ongoing (Lorin Benton, RN) Outcome: Patient will Identify and Utilize Support Person (DAVID Miller) Status: Ongoing (Lorin Benton [facility]) Knowledge Deficit State: Actual (DAVID Miller) Related To: Labor and Delivery Process; Surgical Procedures; Treatment and Procedures; Impending Alterations in Family Dynamics; Feeding and Infant Care; Community Resources and Available Support Mechanisms (DAVID Miller) Goal(s): Patient will Accurately Verbalize Understanding of Plan of Care and Treatment; Patient and Family will Accurately Verbalize Understanding of the Disease Process (DAVID Miller) Interventions: Assess Motivation and Willingness of Patient/Family to Learn; Assess Preferred Learning Mode: One to One Instruction, Reading, Videos, Group Discussion or Demonstration; Assess Barriers to Learning: Pain, Emotional State, Language Barrier, Cognitive Impairment, Visual or Hearing Deficits; Assess Patient and Family Knowledge of Disease Process, Medications and Treatment; Discuss Therapy and/or Treatment Options, Describe Rationale Behind Management, Therapy and Treatment Recommendations; Instruct Patient and Family on Signs and Symptoms to Report; Instruct Patient and Family on Medication Effects and Side Effects; Provide Appropriate and Timely Education Using Multiple Techniques; Provide Patient and Family with Support Group Information and Resources; Give Clear and Thorough Explanations and Demonstrations (DAVID Miller) Outcome: Patient and Family will Verbalize Understanding of Condition, Treatment and Signs and Symptoms to Report (DAVID Miller) Status: Ongoing (Lorin Benton, LIBBYC) Outcome: Patient will Identify Perceived Learning Needs and Express Motivation to Learn (Lorin Benton, DAVID) Status: Ongoing (Lorin Benton, RNC) Outcome: Patient will Verbalize Understanding of Desired Content, and/or Performs Desired Skill Prior to Discharge (Lorin Benton, DAVID) Status: Ongoing (Lorin Benton, RNC) Impaired Skin Integrity State: Risk For (DAVID Miller) Related To: Vaginal Delivery (Lorin Benton, DAVID) Goal(s): Patient will Maintain Optimal Skin Integrity, Free of Breakdown, Injury or Infection (Lorin Benton, DAVID) Interventions: Complete Screening for Pressure Ulcer Risk and Initiate Protocol per Hospital Policy; Monitor Site of Skin Impairment for Color Changes, Redness, Swelling, Warmth, Pain or Other Signs of Infection; Encourage and Assist with Position Changes; Monitor Patient's Mobility Status; Provide Adequate Nutrition and Fluids; Teach Patient Appropriate Hygienic Care; Teach Patient/Family Skin Care Management (Lorin Benton, DAVID) Outcome: Patient will not have Evidence of Injury Such as Skin Breakdown, Scrapes, Cuts, or Bruising (Lorin Benton, DAVID) Status: Ongoing (Lorin Benton, RNC) Outcome: Patient will Report Any Altered Sensation or Pain at Site of Skin Impairment (Lorin Benton, DAVID) Status: Ongoing (Lorin Benton, DAVID) Outcome: Patients Incisions and Wounds will be without Signs or Symptoms of Infection (Lorin Benton, RNGigi) Status: Ongoing (Lorin Benton, RNC) Outcome: Patient will Demonstrate Understanding of Plan to Heal Skin and Prevent Reinjury and Verbalize Risk Factors (DAVID Miller) Status: Ongoing (DAVID Miller) Nutrition State: Actual (DAVID Miller) Related To: ; (DAVID Miller) Goal(s): Patient will have an Intake of Nutrients Sufficient to Meet Metabolic Needs (DAVID Miller) Interventions: Nutritional Screening and Assessment per Hospital Policy; Consult Blood Tester Fowl for Further Assessment and Recommendations Regarding Food Preferences and Nutritional Support; Allow Patient to Plan and Order Diet when Possible; Monitor Laboratory Values That Indicate Nutritional Well-being; Consult Shotgun Shell Assembly Machine Operator for Nutritional Support Regarding Requirements; Document Actual Weight Initially and Weekly (Do Not Estimate); Encourage Patient Participation in Maintaining a Food Log as Indicated; Educate Patient on the Importance of Maintaining an Adequate Caloric Intake (DAVID Miller) Outcome: Patient will Receive Adequate Calories and Fluid Volume to Meet Metabolic Needs (DAVID Miller) Status: Ongoing (DAVID Miller) Outcome: Patient will Select Foods or Meals that Support Adequate Nutrition (DAVID Miller) Status: Ongoing (DAVID Miller)
[2016-06-01 09:08] VITALS: BP 135/71
--- NOTE | 2016-06-01 09:31 | PDOC DISCHARGE SUMMARY ---
Final Diagnosis Discharge Date: 06/01/16 - Final Diagnosis (1) Vacuum extractor delivery, delivered Is this a current diagnosis for this admission?: Yes Discharge Data - Discharge Medication Home Medications: Pnv with Ca,No.72/Iron/FA [Pnv Plus Multivit Tab] 1 each PO DAILY 05/30 Docusate Sodium [Colace 100 mg Capsule] 100 mg PO BID #60 capsule 06/01/16 Ferrous Sulfate [Feosol 325 mg Tablet] 325 mg PO BID #60 tablet 06/01/16 Ibuprofen [Motrin 800 mg Tablet] 800 mg PO Q8 #60 tablet 06/01/16 Gestational Age: 39.3 Reason(s) for Admission: Onset of Labor, Group B Strep Positive Procedures: NST Intrapartum Procedure(s): Spontaneous Vaginal Delivery - Diagnosis Test Laboratory: Temp Pulse Resp BP Pulse Ox 97.4 F 71 18 135/71 H 100 06/01/16 08:44 06/01/16 08:44 06/01/16 08:44 06/01/16 08:44 06/01/16 08:44 05/30/16 05/30/16 05/31/16 10:30 12:28 07:55 RBC 4.12 3.76 Hgb 11.7 L 10.8 L Hct 35.8 L 32.5 L Urine Opiates Screen NEGATIVE - Discharge information/Instructions Discharge Activity: Balance Activity w/Rest, Pelvic Rest Discharge Diet: Regular Disposition: HOME, SELF-CARE Follow [facility] with: [facility] in: 1, Weeks
[2016-06-01] MEDS: SENNOSIDES/DOCUSATE 8.6-50 MG 1 EACH TABLET PO SCH (10:25)
[2016-06-01] MEDS: DOCUSATE SODIUM 100 MG CAPSULE PO SCH (10:25)
[2016-06-01] MEDS: FERROUS SULFATE 325 MG TABLET PO SCH (10:25)
[2016-06-01] MEDS: PRENATAL VITAMIN W-O CA NO5/FE FUMARATE/FA CAPSULE PO SCH (10:25)
--- NOTE | 2016-06-10 18:49 | Delivery Summary ---
Del Sum A-C Datetime Report Generated by CPN: 06/10/2016 18:48 ADMISSION DATA Chief Complaint: Uterine Contractions Indication for Induction: Not Applicable Admission Impression: Active Labor Admit Provider Comments: pt doing well, plans on epidural DELIVERY PERSONNEL Delivery Doctor:: Natalie Daniel CNM Labor and Delivery Nurse:: Priyanka Roblero RNlab tech Nurse:: DAVID Fisher Region Manager/TIPPLE MECHANIC: Jemima Ramirez CNA II Region Manager/TIPPLE MECHANIC: Alexandria To, RN TRAUMA Additional Personnel: : Franklindenise Fuchs RN MATERNAL INFORMATION Delivery Anesthesia: Epidural Medications After Delivery: Pitocin Drip 20 Units/1000ml NSS Estimated Blood Loss (ml): 250 Maternal Complications: None Provider Comments: VADVF with [address] Perez over intact perineum, 1* lt labial lac. Shoulders and body K.Daniel CNM. Nuchal cord x1 reduced. Tight shoulders, [facility] and Suprapubic pressure used. vigorous, to mothers abd. Cord clamped x 2 cut per FOB. Placenta intact via quiles. Bleeding stabilized. Mother and infant stable, EBL 250. Apgars 9, 9. LABOR SUMMARY EDC: 06/03/2016 00:00 Attempted: No Labor Anesthesia: Epidural LABOR INFORMATION Reason for Induction: Not Applicable Onset of Labor: 05/30/2016 12:00 Complete Dilatation: 05/30/2016 15:55 Oxytocin: N/A Group B Beta Strep: Positive Antibiotics # of Doses: 2 Antibiotics Time of Last Dose: 1553 Name of Antibiotic Given: PCN Steroids Given: None Reason Steroids Not Administered: Not Applicable MEMBRANES Membranes Rupture Method: Artificial Rupture of Membranes: 05/30/2016 14:16 Length of Rupture (hr): 2.27 Amniotic Fluid Color: Clear Amniotic Fluid Amount: Small Amniotic Fluid Odor: Normal STAGES OF LABOR Stage 1 hr: 3 Stage 1 min: 55 Stage 2 hr: 0 Stage 2 min: 37 Stage 3 hr: 0 Stage 3 min: 5 Total Time in Labor hr: 4 Total Time in Labor min: 37 VAGINAL DELIVERY Episiotomy: None Laceration Extension: First Degree Other Laceration: left labial Laceration Repair: Yes Laceration Repair Note: 3.0 chromic 1*lt labial laceration CSECTION DELIVERY Primary Indication: N/A BABY A INFORMATION Infant Delivery Date/Time: 05/30/2016 16:32 Method of Delivery: Vaginal Born in Route : No : N/A Forceps: N/A Vacuum Extraction: Successful Shoulder Dystocia : No ASSISTED DELIVERY BABY A Indication for Assisted Delivery: distress Catheter Prior to Procedure: Yes Station Vacuum/Forcep Apply: +2 Position Vacuum/Forcep Apply: Left Occipital Anterior Vacuum Number of Pulls: 1 Vacuum Number of PopOffs: 0 Reduce Pressure btwn Ctx: No Vacuum Outreach Team Member: [place] Total Time Vacuum Applied: <30 seconds Vacuum/Forceps Comment: pressure in green PRESENTATION/POSITION BABY A Presentation: Cephalic Cephalic Presentation: Vertex Vertex Position: Left Occipital Anterior Breech Presentation: N/A PLACENTA INFORMATION BABY A Placenta Delivery Time : 05/30/2016 16:37 Placenta Method of Delivery: Spontaneous Placenta Status: Delivered SCORES BABY A Heart Rate 1 min: >100 bpm Resp Effort 1 min: Good Cry Reflex Irritability 1 min: Cough or Sneeze or Pulls Away Muscle Tone 1 min: Active Motion Color 1 min: Body [place], Extremities Blue Resuscitation Effort 1 min: Tactile Stimulation SCORE 1 MIN: 9 Heart Rate 5 min: >100 bpm Resp Effort 5 min: Good Cry Reflex Irritability 5 min: Cough or Sneeze or Pulls Away Muscle Tone 5 min: Active Motion Color 5 min: Body [place], Extremities Blue Resuscitation Effort 5 min: Tactile Stimulation SCORE 5 MIN: 9 INFANT INFORMATION BABY A Gestational Age at Delivery: 39.3 Gestational Status: Full Term- 39- 40.6 Weeks Outcome : Liveborn Condition : Stable Sex: Female IDENTIFICATION BABY A Infant Verification Date/Time: 05/30/2016 16:45 ID Band Number: [id number] Mother's Name Verified: Yes RN Verifying Infant: D Nicole RNC Additional Verifying Personnel: Isaac Fuchs RN WEIGHT/LENGTH BABY A Infant Birthweight (gm): 3005 Weight (lb): 6 Infant Weight (oz): 10 Infant Length (in): 19.00 Infant Length (cm): 48.26 CORD INFORMATION BABY A No. Cord Vessels: 3 Nuchal Cord : Around Neck x1, Loose Cord Blood Taken: Yes-For Eval (Mom's Blood Type - or O+) Infant Suction: Mouth; Nose ASSESSMENT BABY A Infant Complications: None; Multiple Variable Decels Physical Findings at Delivery: Within Normal Limits Infant Respirations: Appears Normal Skin to Skin: Yes Skin to Skin Time (min): 5 Auto Bumper Mechanic/ALS Called : No Care By: Hillary Martínez RN Transferred To: Remains with Mother SIGNATURES Assignment: Max Bolden DO Signature: with User ID: [email or web address] : with User ID: [email or web address] : I was personally available for consultation and serving as supervising physician for the MLP.
== END 2016-06-01 12:36 | disposition home or self-care (01) | DRG 775 ==
LOC: LC 10:20 → LR 12:03 → 2S 19:45
PROVIDERS: ADMIT Obstetrics & Gynecology; ATTEND Obstetrics & Gynecology
PROC: 10D07Z6 Extraction of Products of Conception, Vacuum, Via Natural or Artificial Opening (ICD-10-PCS; principal; 2016-05-30)
PROC: 0HQ9XZZ Repair Perineum Skin, External Approach (ICD-10-PCS; 2016-05-30)
PROC: 3E0234Z Introduction of Serum, Toxoid and Vaccine into Muscle, Percutaneous Approach (ICD-10-PCS; 2016-05-31)
PROC: 3E0234Z Introduction of Serum, Toxoid and Vaccine into Muscle, Percutaneous Approach (ICD-10-PCS; 2016-05-31)
DX: O36.0930 Maternal care for other rhesus isoimmunization, third trimester, not applicable or unspecified (principal); O99.824 Streptococcus B carrier state complicating childbirth; O69.81X0 Labor and delivery complicated by cord around neck, without compression, not applicable or unspecified; O76 Abnormality in fetal heart rate and rhythm complicating labor and delivery; O70.0 First degree perineal laceration during delivery; Z37.0 Single live birth; Z3A.39 39 weeks gestation of pregnancy
CPT/HCPCS: 36415; 80307; 81005; 85025; 85027; 85461; 86592; 86850; 86870; 86900; 86901; 94760; J2540; J2590; J2790; J3490

== ENCOUNTER 2016-09-17 23:15 | Emergency (ER) | payer MEDICAID, OTHER ==
[2016-09-17 23:59] VITALS: BP 128/74
[2016-09-18] MEDS ORDERED: ACYCLOVIR 800 MG TABLET PO ONE (01:18)
[2016-09-18] MEDS ORDERED: ACETAMINOPHEN 325 MG TABLET PO ONE (01:18)
[2016-09-18] MEDS ORDERED: DIPHENHYDRAMINE HCL 50 MG CAPSULE PO ONE (01:19)
--- NOTE | 2016-09-18 01:22 | ER Document Report ---
ED Skin Rash/Insect Bite/Abscs - General Chief Complaint: Possible insect bites Stated Complaint: POSSIBLE INSECT BITE/SHOULDER AND BACK Time Seen by Provider: 09/18/16 01:02 Mode of Arrival: Ambulatory Information source: Patient TRAVEL OUTSIDE OF THE [place] 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, she was cleaning out a classroom closet on Friday, Friday evening she developed what she thought to be mosquito bites, for the past few days she has developed a worsening rash as well as a fever, patient denies knowledge of anything specific biting her, there is no discharge from her wound, she denies any cough, cold or congestion, no nausea, vomiting or diarrhea, no dysuria, no sore throat, no ear pain, no headache, no neck stiffness, patient reports that she had chickenpox as a child - Related Data Allergies/Adverse Reactions: No Known Allergies Allergy (Verified 05/30/16 10:31) Past Medical History - General Information source: Patient - Social History Smoking Status: Current Every Day Smoker Family History: Reviewed & Not Pertinent Pulmonary Medical History: Reports: Hx Asthma Renal/ Medical History: Denies: Hx Peritoneal Dialysis - Immunizations Hx Diphtheria, Pertussis, Tetanus Vaccination: Yes Review of Systems - Review of Systems Constitutional: Fever EENT: No symptoms reported Cardiovascular: No symptoms reported Respiratory: No symptoms reported Gastrointestinal: No symptoms reported Genitourinary: No symptoms reported Female Genitourinary: No symptoms reported Musculoskeletal: No symptoms reported Skin: See HPI Hematologic/Lymphatic: No symptoms reported Neurological/Psychological: No symptoms reported -: Yes All other systems reviewed and negative Physical Exam - Vital signs Vitals: Temp Pulse BP Pulse Ox 100.7 F H 106 H 128/74 H 99 09/17/16 23:54 09/17/16 23:54 09/17/16 23:54 09/17/16 23:54 Interpretation: Normal - General General appearance: Appears well, Alert - HEENT Head: Normocephalic, Atraumatic Eyes: Normal Conjunctiva: Normal Extraocular movements intact: Yes Eyelashes: Normal Pupils: PERRL - Respiratory Respiratory status: No respiratory distress Chest status: Nontender Breath sounds: Normal Chest palpation: Normal - Cardiovascular Rhythm: Regular Heart sounds: Normal auscultation Murmur: No - Abdominal Inspection: Normal Distension: No distension Bowel sounds: Normal Tenderness: Nontender Organomegaly: No organomegaly - Back Back: Normal, Nontender - Extremities General upper extremity: Normal inspection, Nontender, Normal color, Normal ROM , Normal temperature General lower extremity: Normal inspection, Nontender, Normal color, Normal ROM , Normal temperature, Normal weight bearing. No: Jory's sign - Neurological Neuro grossly intact: Yes Cognition: Normal Orientation: AAOx4 [place] Scale Eye Opening: Spontaneous [place] Coma Scale Verbal: Oriented [place] Coma Scale Motor: Obeys Commands [place] Com[place] Scale Total: 15 Speech: Normal Motor strength normal: LUE, RUE, LLE, RLE Sensory: Normal - Psychological Associated symptoms: Normal affect, Normal mood - Skin Skin Temperature: Warm Skin Moisture: Dry Skin Color: Normal Character of irregularity: Erythematous - Patient has erythematous raised vesicular appearing rash on the right shoulder anteriorly and posteriorly, as well as the right posterior flank, she also has at least one lesion that crosses midline to the left mid back, there are excoriated, a few of them are scabbed, a clear fluid can be expressed Course - Re-evaluation Re-evalutation: 09/18/16 02:56 26-year-old female with rash that appears to be likely varicella, she was provided with Tylenol in the emergency room as well as Benadryl, and acyclovir, advised to follow-up with her primary care provider as needed, she does report that she has a 3-month-old child at home that is unvaccinated is a 6-year-old that is fully vaccinated, she was advised to contact with her 3-month-old completely scabbed over, he was given a note to stay out of work for at least a week, advised to follow-up with her primary care provider or return if symptoms worsen, patient acknowledges understanding and agreement with this plan - Vital Signs Vital signs: Temp Pulse Resp BP Pulse Ox 100.7 F H 106 H 128/74 H 99 09/17/16 23:54 09/17/16 23:54 09/17/16 23:54 09/17/16 23:54 Discharge - Discharge Clinical Impression: Chickenpox Qualifiers: Varicella complications: without complication Qualified Code(s): B01.9 - Varicella without complication Condition: Stable Disposition: HOME, SELF-CARE Instructions: Fever ([facility]), Acetaminophen, Chicken Pox ([facility]) Additional Instructions: Follow up with your primary care provider in one to 2 days. Return to the emergency room immediately if symptoms worsen or any additional concerns. Avoid immunocompromised adults, and nonvaccinated young children. You are contagious until all of the lesions are crusted over. Prescriptions: Acyclovir 800 mg PO Q6 #28 tablet Forms: Return to Work Referrals: JAEL DEAN MD [Primary Care Provider] - Follow up as needed
[2016-09-18] MEDS ORDERED: ACYCLOVIR 800 MG TABLET ONE (01:44)
== END 2016-09-18 02:14 | disposition home or self-care (01) ==
LOC: ER 23:15
DX: B01.9 Varicella without complication (principal); R50.9 Fever, unspecified; J45.909 Unspecified asthma, uncomplicated; F17.200 Nicotine dependence, unspecified, uncomplicated
CPT/HCPCS: 99282; J3490